=== PATIENT | male | born 1965 | race Caucasian/White ===

== ENCOUNTER → 2022-04-13 15:22 | Outpatient (CLI) | payer OTHER, SELFPAY ==
--- NOTE | 2022-04-13 15:24 | DI.RAD.S_ITS ---
PROCEDURE: XR SHOULDER RT MIN 2V INDICATIONS: fall, rotator cuff/supraspinatus injury heard crunch TECHNIQUE: 3 views of the shoulder were acquired. COMPARISON: None. FINDINGS: Bones: No fractures or dislocations. [id number] acromioclavicular joint and glenohumeral joint osteoarthritic changes are seen. No suspicious bony lesions. Visualized ribs appear intact. Soft tissues: No suspicious soft tissue calcifications. IMPRESSION: Mild to moderate right shoulder joint osteoarthritis. No shoulder fracture or dislocation. No gross soft tissue abnormalities. Dictated by: Dann Casey M.D. on 04/13/2022 at 16:06 Approved by: Dann Casey M.D. on 04/13/2022 at 16:07
== END ==
PROVIDERS: PCP Family Medicine; Referring Provider Student in an Organized Health Care Education/Training Program; Visit Provider Student in an Organized Health Care Education/Training Program
DX: S46.811A Strain of other muscles, fascia and tendons at shoulder and upper arm level, right arm, initial encounter (principal); M67.911 Unspecified disorder of synovium and tendon, right shoulder; M19.011 Primary osteoarthritis, right shoulder; W19.XXXA Unspecified fall, initial encounter
CPT/HCPCS: 73030